=== PATIENT | female | born 1970 | race Caucasian/White ===

== ENCOUNTER 2020-12-22 07:51 | Outpatient (CLI) | payer BC ==
[2020-12-22 17:59] LABS: SARS-CoV-2 PCR by NAA Not Detected (NotDetected)
== END 2020-12-22 07:52 | disposition home or self-care (01) ==
LOC: CSHLAB 07:51
PROVIDERS: ATTEND Family Medicine
DX: Z20.822 Contact with and (suspected) exposure to COVID-19 (principal); M54.12 Radiculopathy, cervical region
CPT/HCPCS: 87635; U0003; U0005

== ENCOUNTER 2023-07-30 11:56 | Outpatient (CLI) | payer BC | END 2023-07-30 11:57 | disposition home or self-care (01) | LOC: CSHCT 11:56 | PROVIDERS: ATTEND Urology | DX: N13.30 Unspecified hydronephrosis (principal); N13.2 Hydronephrosis with renal and ureteral calculous obstruction | CPT/HCPCS: 74176 ==